=== PATIENT | female | born 1955 | race Two or more races ===

== ENCOUNTER 2020-09-24 05:05 | Inpatient (IN) | payer OTHER ==
[2020-09-24] VITALS (15 sets, daily range): BP systolic 118–148; BP diastolic 40–78
[~2020-09-24] VITALS: Ht 170.2 cm; Wt 72.6 kg
[~2020-09-24 05:05] MED LIST: RISPERDAL1 MG PO; WELLBUTRIN SR100 MG ORAL
[2020-09-24] MEDS ORDERED: Rocuronium Bromide 50mg/5ml Inj IV ONE (06:29)
[2020-09-24] MEDS ORDERED: Succinylcholine 20mg/ml 10ml vial ONE (06:29)
[2020-09-24] MEDS ORDERED: fentaNYL 100 mcg/2 mL IV ONE (06:30)
[2020-09-24] MEDS ORDERED: Midazolam 2mg/2ml Inj ONE (06:30)
[2020-09-24] MEDS ORDERED: Lidocaine 1% MPF 10mg/ml 5ml ONE (06:32)
[2020-09-24] MEDS ORDERED: Thrombin 5000 units TOPIC ONE (06:41)
[2020-09-24] MEDS ORDERED: Gelfoam Size TOPIC ONE (06:42)
[2020-09-24] MEDS ORDERED: Bacitracin 50000 Units Vial ONE (06:42)
[2020-09-24] MEDS ORDERED: Sterile Water Irrig 1000ml IRRIG ONE (07:00)
[2020-09-24] MEDS ORDERED: propofoL 1,000mg/100ml IV ONE (07:00)
[2020-09-24] MEDS ORDERED: LR 1000ml ONE (07:00)
[2020-09-24] MEDS ORDERED: ceFAZolin sod 2 GM in NS 55 ML IVPB ONE (07:00)
[2020-09-24] MEDS ORDERED: NS Irrig 1000ml ONE (07:00)
--- NOTE | 2020-09-24 07:25 | Pre-Procedure Note/Attestation ---
Pre-Procedure Note/Attestation Complete Prior to Procedure Planned Procedure: not applicable Procedure Narrative: Anterior cervical discectomy and fusion of Cervical 56 and 67 Indications for Procedure Pre-Operative Diagnosis: herniation of C56,67 Attestation I attest that I discussed the nature of the procedure; its benefits; risks and complications; and alternatives (and the risks and benefits of such alternatives), prior to the procedure, with the patient (or the patient's legal senior outside sales representative). I attest that, if there was a reasonable possibility of needing a blood transfusion, the patient (or the patient's legal senior outside sales representative) was given the [facility] standardized written summary, pursuant to the Dez Mickey Blood Safety Act ([place] Health and Safety Code # 1645, as amended). I attest that I re-evaluated the patient just prior to the surgery and that there has been no change in the patient's H&P, except as documented below: Roc Montez MD Sep 24, 2020 07:25
--- NOTE | 2020-09-24 07:27 | Brief Operative Note ---
Immediate Post Operative Note Operative Note Chief Complaint: neck pain and radicular pains Pre-op Diagnosis: herniation of C56,67 Procedure: Anterior cervical discectomy and fusion of Cervical 56 and 67 Post-op Diagnosis: same as pre-op Findings: consistent w/pre-op dx studies Surgeon: Melida Head Turbine Operator: Tim Anesthesiologist: WILFREDO Anesthesia: general Specimen: none Complications: none Condition: stable Fluids: IVF Estimated Blood Loss: minimal Drains: none Implant(s) used?: Yes - prodisc c sz 5, nuvasive interlock c sz 6 , screws 13x3 Roc Montez MD Sep 24, 2020 07:27
[2020-09-24] MEDS ORDERED: Morphine Sulfate 4mg/ml Inj (IV USE ONLY) IV PRN (07:30)
[2020-09-24] MEDS ORDERED: Metoclopramide 10mg/2ml Inj IVP PRN (07:30)
[2020-09-24] MEDS ORDERED: HYDROcodone/Acetamin 7.5/325 tab ORAL PRN ×2 (07:30)
[2020-09-24] MEDS ORDERED: HYDROcodone/Acetamin 5/325 tab ORAL PRN (07:30)
[2020-09-24] MEDS ORDERED: Naloxone 0.4mg/ml Inj IVP PRN (07:30)
[2020-09-24] MEDS ORDERED: Morphine Sulfate 2mg/ml Inj(IV/IM USE ONLY) IV PRN (07:30)
[2020-09-24] MEDS ORDERED: Milk of Magnesia 30ml Ud ORAL PRN (07:30)
[2020-09-24] MEDS ORDERED: HYDROmorphone 1mg/ml Carpuject IVP PRN (07:30)
[2020-09-24] MEDS ORDERED: Chloraseptic Spray 20mL Bottle ORAL PRN (07:30)
[2020-09-24] MEDS ORDERED: Sodium Chloride 10ml vial INJ ONE (07:56)
[2020-09-24] MEDS ORDERED: Morphine Sulfate 10mg/ml Inj ONE (07:56)
--- NOTE | 2020-09-24 07:57 | NUR ---
CASE MANAGEMENT:REVIEW 64 YR OLD MALE HERE FOR ELECTIVE SURGERY SI: NECK PAIN. RADICULOPATHY COVID NOT DETECTED 97.6/68 18 118/61 97% ON RA IS: TO SURGERY FOR: ANTERIOR CERVICAL DISCECTOMY AND FUSION C56 AND 67 IV ANCEF Q8HRS IV DECADRON Q6HRS IV ACETAMINOPHEN X1 IVF@100/HR : TO MED/SURG POST OP DCP: FROM HOME PLAN: PT EVAL AND TX
[2020-09-24] MEDS ORDERED: Acetaminophen (Non formulary) 100 ML IV ONE (08:00)
--- NOTE | 2020-09-24 08:13 | Anethesia Preoperative Eval ---
Anesthesia Pre-op PMH/ROS General Date of Evaluation: Sep 24, 2020 Time of Evaluation: 06:55 Anesthesiologist: Santiago ASA Score: ASA 2 Mallampati Score Class I : Soft palate, uvula, fauces, pillars visible Class II: Soft palate, uvula, fauces visible Class III: Soft palate, base of uvula visible Class IV: Only hard plate visible Mallampati Classification: Class II Surgeon: Melida Diagnosis: Cervical radiculopathy Surgical Procedure: ACDF Anesthesia History: none Social History: smoking - h/o Family History: no anesthesia problems Allergies: Coded Allergies: No Known Allergies (Unverified , 09/22/20) Medications: see eMAR Patient NPO?: Yes Past Medical History Cardiovascular: Denies: HTN, CAD, AL, valve dz, arrhythmia, other Pulmonary: Denies: asthma, COPD, JUAN, other Gastrointestinal/Genitourinary: Reports: GERD; Denies: CRI, ESRD, other Neurologic/Psychiatric: Reports: depression/anxiety, other - chronic pain; Denies: dementia, CVA, TIA Endocrine: Denies: DM, hypothyroidism, steroids, other HEENT: Denies: cataract (L), cataract (R), glaucoma, [place] (L), [place] (R), other Hematology/Immune: Denies: anemia, DVT, bleeding disorder, other Musculoskeletal/Integumentary: Reports: OA; Denies: RA, DJD, DDD, edema, other Other: other - overweight PMH Narrative: as above PSxH Narrative: KneeSx. Anesthesia Pre-op Phys. Exam Physician Exam Last Vital Signs Date Time Temp Pulse Resp B/P (MAP) Pulse Ox O2 Delivery O2 Flow Rate FiO2 09/24/20 06:08 Room Air 09/24/20 05:52 97.6 68 18 118/61 (80) 97 Constitutional: NAD Neurologic: CN 2-12 intact Cardiovascular: RRR, no M/R/G Respiratory: CTA Gastrointestinal: S/NT/ND Airway Exam Mallampati Score: Class II MO: limited Neck: stiff ROM: limited Teeth: missing Dentures: no upper, no lower Anesthesia Pre-op A/P Labs see chart Studies Pre-op Studies: EKG - NSR Risk Assessment & Plan Assessment: ASA 2 Plan: GA with ETT, neuromonitoring Status Change Before Surgery: No Pre-Antibiotics Drug: Ancef 1gr. Given Within 1 Hr of Incision: Yes Time Given: 07:40 Adrián Henderson MD Sep 24, 2020 08:13
[2020-09-24] MEDS ORDERED: DiphenhydrAMINE 50mg/ml Inj IVP PRN (08:15)
[2020-09-24] MEDS ORDERED: Ketorolac 30mg Inj IV PRN (08:15)
[2020-09-24] MEDS ORDERED: Midazolam 2mg/2ml Inj IVP PRN (08:15)
[2020-09-24] MEDS ORDERED: LR 1000ml 1,000 ML IVLG SCH (08:15)
[2020-09-24] MEDS ORDERED: Glycopyrrolate 0.2mg/ml 1ml Vial ONE (08:20)
[2020-09-24] MEDS ORDERED: Neostigmine 1mg/ml 10ml Inj ONE (08:20)
--- NOTE | 2020-09-24 09:22 | Immediate Post-Op Evaluation ---
Immediate Post-Op Evalulation Immediate Post-Op Evalulation Procedure: ACDF C5 toC7 Date of Evaluation: Sep 24, 2020 Time of Evaluation: 09:21 IV Fluids: 600 Blood Products: none Estimated Blood Loss: 100 Urinary Output: 300 Blood Pressure Systolic: 118 Blood Pressure Diastolic: 76 Pulse Rate: 72 Respiratory Rate: 20 O2 Sat by Pulse Oximetry: 99 Temperature (Fahrenheit): 97.6 Pain Score (1-10): 1 Nausea: No Vomiting: No Complications none Patient Status: reacts, patent, extubated, none Hydration Status: adequate Adrián Henderson MD Sep 24, 2020 09:22
[2020-09-24] MEDS: Hydromorphone 0.5mg/0.5ml inj IVP PRN ×2 (09:45→12:16)
--- NOTE | 2020-09-24 10:58 | Diagnostic Imaging Report ---
XRAY C Spine 2-3v CLINICAL HISTORY: Neck pain. COMPARISON: None FINDINGS: Fluoroscopy independent procedure performed for cervical fusion. 7.4 seconds of fluoroscopy time utilized by the ordering physician. Total cumulative dose is 0.36 mGy and 0.11901 Gy.cm2. Total of 3 spot images are obtained . IMPRESSION: FLUOROSCOPY GUIDED PROCEDURE.
--- NOTE | 2020-09-24 11:00 | NUR ---
NURSE NOTES: Shira RN brought patient by bed in stable condition. Alert and oriented x4. Complain of pain 6/10 surgical site. Will administer pain medication as ordered. IV dressing intact and dry. Belonging checked. Bed lowest position and side rails up. Call light within reach. Will continue to monitor.
[2020-09-24] MEDS: NS w/KCl 20mEq 1000ml 1,000 ML IV SCH ×2 (12:54→23:06)
[2020-09-24] MEDS: Morphine Sulfate 4mg/ml Inj (IV USE ONLY) IV PRN ×3 (13:04→21:32)
[2020-09-24] MEDS: ceFAZolin sod 1 GM in D5W 55 ML IV SCH ×2 (16:26→23:06)
[2020-09-24] MEDS: Docusate 100mg cap ORAL SCH (17:40)
--- NOTE | 2020-09-24 19:14 | NUR ---
NURSE HAND-OFF: Important Events on Shift: Surgery today Patient Status: Stable Diet: Post-op cervical diet Pending Orders: N/A Pending Results/Labs: N/A Pending MD notification:N/A Latest Vital Signs: Temperature 97.7 , Pulse 74 , B/P 128 /71 , Respiratory Rate 18 , O2 SAT 97 , Nasal Cannula, O2 Flow Rate 3 . Vital Sign Comment: Stable Latest Cardoza Fall Score: 35 Fall Risk: Medium Risk Safety Measures: Call light , Bed Alarm , Side Rails Side Rails x1, Bed position Low and Locked. Fall Precautions: Report given to Mindy MO. Patient in stable condition.
--- NOTE | 2020-09-24 19:21 | NUR ---
NURSE NOTES: Received patient in bed, post op, awake, alert, oriented x4, able to make her needs known, IV site is clean dry and intact, ambulates with assistance, call light is within reach, bed is lowered, locked, alarm is on, will continue to monitor for comfort and safety.
[2020-09-25] VITALS: BP 144/78
[2020-09-25] MEDS: Morphine Sulfate 4mg/ml Inj (IV USE ONLY) IV PRN ×2 (02:30→06:02)
[2020-09-25 04:00] VITALS: BP 144/76
[2020-09-25] MEDS: ceFAZolin sod 1 GM in D5W 55 ML IV SCH (06:30)
--- NOTE | 2020-09-25 07:15 | NUR ---
NURSE HAND-OFF: Important Events on Shift:awaiting to be discharged home Patient Status: full code Diet: cervical diet Pending Orders: Pending Results/Labs: Pending MD notification: Latest Vital Signs: Temperature 97.5 , Pulse 85 , B/P 144 /76 , Respiratory Rate 20 , O2 SAT 95 , Nasal Cannula, O2 Flow Rate 3 . Vital Sign Comment: Latest Cardoza Fall Score: 35 Fall Risk: Medium Risk Safety Measures: Call light Within Reach, Bed Alarm Zone 1, Side Rails Side Rails x1, Bed position Low and Locked. Fall Precautions: Report given to Becki MO
--- NOTE | 2020-09-25 07:18 | NUR ---
NURSE NOTES: Report received from Mindy MO, rounds made. Patient talkative. AOx4, calm. Respirations even/unlabored on RA. Anterior neck/surgical site pain /10, will medicate as ordered. Dermabond dressing CDI. Neuros intact, skin warm, moves all extremities, no NT, pulses palpable. IV infusing to LH, site asymptomatic, will heplock. Appetite good, on post cervical diet, encouraged PO fluid intake, verbalized understanding. Call light in reach, bed in lowest position, will continue to monitor.
[2020-09-25 08:00] VITALS: BP 127/69
[2020-09-25] MEDS: Docusate 100mg cap ORAL SCH (08:09)
--- NOTE | 2020-09-25 08:32 | NUR ---
NURSE NOTES: Spoke to Dr. Montez regarding plans for discharge today after PT eval, orders received for discharge. Contacted [facility] PT regarding PT eval and plans for discharge at 1000, will see patient at 0830 this AM. Patient updated, verbalized understanding.
--- NOTE | 2020-09-25 08:50 | NUR ---
PT EVALUATION NOTE Patient seen for initial evaluation. Patient instructed in log roll technique and cervical precautions. Patient independent with all functional mobility without assistive device including negotiating stairs. Skilled inpatient PT intervention not indicated, patient discharged from PT. Becki MO notified. Addendum: 09/25/20 at 1242 by CATHERINE KLEIN PT Amended: Links added.
[2020-09-25] MEDS: NS w/KCl 20mEq 1000ml 1,000 ML IV SCH (09:00)
--- NOTE | 2020-09-25 09:00 | NUR ---
NURSE NOTES: PT evaluation done, ambulated in halls with Aide PT, gait steady, moderate pace.
[2020-09-25] MEDS ORDERED: HYDROCODON-ACE1 EA13 ORAL (09:48)
[2020-09-25] MEDS ORDERED: CARISOPRODOL350 MG ORAL (09:49)
--- NOTE | 2020-09-25 10:08 | NUR ---
NURSE NOTES: Home medications reconciled with Dr. Montez, orders to continue upon discharge.
--- NOTE | 2020-09-25 10:32 | NUR ---
NURSE NOTES: Discharge instructions and prescription x1 reviewed with patient, verbalized understanding. LH saline lock discontinued, no active bleeding. ID bracelet removed. All belongings, discharge instructions, prescription given to patient. Ambulated down to lobby with Katy RIVERA , in stable condition. Discharged at 1032.
[2020-09-25] MEDS ORDERED: Tubing IV Secondary IV ONE (10:49)
[2020-09-25 12:10] VITALS: BP 118/76
--- NOTE | 2020-09-25 12:10 | 48 Hour Post Anesthesia Eval ---
Post Anesthesia Evaluation Procedure: ACDF C5 toC7 Date of Evaluation: Sep 25, 2020 Time of Evaluation: 10:20 Blood Pressure Systolic: 118 0: 76 Pulse Rate: 68 Respiratory Rate: 20 Temperature (Fahrenheit): 97.6 O2 Sat by Pulse Oximetry: 98 Airway: patent Nausea: No Vomiting: No Pain Intensity: 2 Hydration Status: adequate Cardiopulmonary Status: stable Mental Status/LOC: patient returned to baseline Follow-up Care/Observations: n/a Post-Anesthesia Complications: none Follow-up care needed: ready to discharge Adrián Henderson MD Sep 25, 2020 12:10
--- NOTE | 2020-09-27 21:29 | Operative Note - Dictated ---
DATE OF OPERATION: 09/24/2020 SURGEON: Roc Montez MD, Orthopaedic Spine Surgeon. SCRAP METAL BURNER: DELORIS Vargas PREOPERATIVE DIAGNOSES: 1. Intractable neck pain. 2. Radiculopathy. 3. Herniation, C5-C6, C6-C7. 4. Neural foraminal stenosis, C5-C6, C6-C7. 5. Stenosis. POSTOPERATIVE DIAGNOSES: 1. Intractable neck pain. 2. Radiculopathy. 3. Herniation, C5-C6, C6-C7. 4. Neural foraminal stenosis, C5-C6, C6-C7. 5. Stenosis. PROCEDURE PERFORMED: 1. Anterior cervical discectomy and fusion of C5-C6 using NuVasive Interlock C, size 6, a total of three screws of 13 mm, with the insertion of 1 mL of Osteocel allograft bone; anterior cervical discectomy and fusion of C6-C7 using NuVasive Interlock C, size 7, a total of three screws of 13 mm length, with the insertion of 1 mL of Osteocel allograft bone. 2. Use of intraoperative microscope. 3. Motor-evoked potential monitoring. 4. Somatosensory-evoked potential monitoring. 5. Supervision and interpretation of fluoroscopy. COMPLICATIONS: None. ANESTHESIA: General. ANESTHESIOLOGIST: Adrián Henderson MD ESTIMATED BLOOD LOSS: Less than 100 mL. INDICATIONS FOR SURGERY: This patient is a 64-year-old female who has a history of intractable neck pain, radiculopathy, herniation at C5-C6 and C6-C7, neural foraminal stenosis at C5-C6 and C6-C7, and stenosis. We tried a course of conservative management, but despite this course, there was still a significant component of persistent, recalcitrant neck pain and arm pain. The MRI demonstrated significant neural foraminal compromise secondary to disc herniations at C5-C6 and C6-C7. We had a long discussion with Jolene regarding the risks and benefits of surgery. Our discussion included but was not limited to nonoperative management, chiropractic management, another epidural steroid injection as well as definitive management in the form of surgery. We recommended an anterior cervical discectomy and fusion of C5-C6 and C6-C7 as final definitive management. We reviewed the risks and benefits of surgery with the patient. Our discussion included a comprehensive review of the clinical issues and the nature of the clinical decision. We reviewed the alternatives, including doing nothing. The patient elected to proceed accordingly with anterior cervical discectomy and fusion of C5-C6 and C6-C7. We had a long discussion regarding the risks, alternatives, and benefits of surgery. Our description of the risks included a discussion in person as well as a signed consent, which detailed all pertinent risks from the procedure itself. Briefly, our discussion included but was not limited to infection, bleeding, pseudarthrosis, spinal cord injury, neurovascular injury, dural tear, CSF leak, neuropathy, paralysis, permanent weakness/drop foot/drop arm, paresthesias, blindness, palsy, and weakness. The patient understood there may be a need for a revision surgery or additional procedures. Approach-related complications including dysphonia, dysphagia, blindness, permanent vocal cord and neural injury, hematoma, swallowing and breathing difficulty. Medical complications were reviewed including liver, kidney, shock, cardiopulmonary failure, anesthesia complications including , swelling, damage to the musculature, larynx/voice injury or loss, esophagus/throat, trachea, blood vessels and muscles/muscular sprain and lungs/pneumothorax during this surgical procedure; injury to deeper structures may be temporary or permanent. After this review of risks, the patient understood these and elected to proceed. A written and verbal consent was given. We discussed the pros and cons of all the alternatives. We discussed the uncertainties associated with the decision. Afterwards, I assessed the patient's understanding and explored their preferences. All questions were answered and no guarantees were given. Medical clearance was obtained prior to surgery. INTRAOPERATIVE FINDINGS: At C5-C6, there were no significant spurs noted along the anterior aspect of the C5 or C6 endplates intraoperatively. The disc itself was soft and spongy. There was appropriate disc height. The disc was not desiccated, crumbled, or collapsed. Upon removal of the disc, I noticed a tear in the posterior longitudinal ligament. This was approximately 10 degrees cephalad to caudad and was larger on the left side than on the right side. I noticed free fragments of nuclear tissue from the nucleus pulposus of the disc. This had herniated through the PLL and were causing significant pressure on the neural foramina and thecal sac posteriorly. These were resected with a combination of a Alvarado pituitary, Kerrison 1 and 2 rongeurs. At C6-C7, the disc itself was soft and spongy. There was no desiccation in the disc itself. There was an anterior spur noted along the inferior aspect of the C7 vertebral body. The disc at C6-C7 was resected and found to be soft and spongy. There was minimal desiccation to the disc itself and upon removal of the disc, I noticed a tear in the PLL. This tear was approximately 10 degrees cephalad to caudad and upon resection with a Microsect 1-B, I determined there was severe pressure on the neural foramina bilaterally. DESCRIPTION OF PROCEDURE: Under the benefit of general endotracheal anesthesia and with the assistance of the entire operative team, the patient was moved from the [facility] onto the operative table in the supine position. The head was secured and carefully positioned appropriately. Bilateral arms were secured with Gel Pads and foam and all bony prominences were padded. For the bilateral lower extremities, SCD and TIA hose were placed for DVT prophylaxis. A surgical timeout was called, which corroborated our planned procedure of anterior cervical discectomy and fusion of C5-C6 and C6-C7. Preoperative antibiotics were administered within 30 minutes of the incision for antibiotic prophylaxis. Using lateral fluoroscopic radiography, the operative levels were delineated. Next, the wound was prepped and draped with chlorhexidine and sterile drapes. An incision was based on lateral fluoroscopy and we centered our incision at the C5-C6 and C6-C7 interspace and next, using a standard Peck-Brown anterior-based approach, the incision was taken down through the skin and subcutaneous tissues until the vertebral bodies and their corresponding disc spaces were visualized. A needle was placed into the interspace to confirm placement of the operative interspace and we performed the remainder of procedure under microscopic visualization. Next, using a bipolar and Bovie cautery to ensure meticulous hemostasis, the longus colli was mobilized bilaterally and retractors were placed deep to the longus colli bilaterally to address retraction. Next, we turned our attention to the radical anterior discectomy. This was initially performed at C5-C6 first by using a 15 blade scalpel followed by narrow pituitaries and a Microsect 5-B curette was used to denude the endplate of all cartilaginous tissue. Next, using a [employer] Sathya AM8 drill bit, the partial vertebrectomy was performed in a uupb-iw-hels and ikpcw-qy-xihoq fashion, and ultimately the posterior uncinate joints bilaterally and posterior osteophytic lips and margins causing central and lateral impingement were carefully denuded until visualization of the posterior longitudinal ligament was possible. An endplate preparation was performed in the exact same fashion using an intervertebral director of audiology, sequential distraction was obtained throughout the disc space. We saw a tear/rent in the PLL and this was carefully mobilized and dissected using a Microsect 1-B curette until we visualized a broad-based disc herniation with compression of the spinal cord as well as neural foramina. This neural foraminal compression was carefully resected using a Kerrison-1 and Kerrison-2 rongeurs until complete decompression of the spinal cord was visualized and complete decompression of the neural foramina and nerve root therein as well as the axilla and lateral margin of the nerve root was visualized and subsequently completely decompressed. The family was notified at one-hour intervals throughout the procedure to provide for consistent updates. Next, we turned our attention to the radical anterior discectomy at the C6-C7 first by using a 15 blade scalpel followed by narrow pituitaries and a Microsect 5-B curette was used to denude the endplate of all cartilaginous tissue. Next, using a [employer] Sathya AM8 drill bit, the partial vertebrectomy was performed in a mjkn-jr-ovkb and bdxni-xq-qiboz fashion, and ultimately the posterior uncinate joints bilaterally and posterior osteophytic lips and margins causing central and lateral impingement were carefully denuded until visualization of the posterior longitudinal ligament was possible. An endplate preparation was performed in the exact same fashion using an intervertebral director of audiology, sequential distraction was obtained throughout the disc space. We saw a tear/rent in the PLL and this was carefully mobilized and dissected using a Microsect 1-B curette until we visualized a broad-based disc herniation with compression of the spinal cord as well neural foramina. This neural foraminal compression was carefully resected using a Kerrison-1 and Kerrison-2 rongeurs until complete decompression of the spinal cord was visualized and complete decompression of the neural foramina and nerve root therein as well as the axilla and lateral margin of the nerve root was visualized and subsequently completely decompressed. We next turned our attention towards trialing our implant within the disc space. We initially tried size 5 and afterwards size 6 trial from the NuVasive system at C5-C6 level and size 7 at C6-C7 level, which appeared to be appropriate under AP and lateral fluoroscopy as well as in terms of its height, depth, width, and lack of toggle. The PEEK (polyetheretherketone) interbody cages were then both packed with 1 mL of allograft bone from Osteocel and local autograft bone matrix. Next, these were then carefully advanced and secured into their intervertebral spaces under direct visualization and with supervision of AP and lateral fluoroscopic views. We next turned our attention towards plating at C5-C6. Plating was performed with the NuVasive Interlock-C plating system. A total of three screws of size 13 mm in length were inserted and confirmed under AP and lateral fluoroscopy and confirmed to be in excellent position. This was then performed at the next level, C6-C7. Plating was performed with the NuVasive Interlock-C plating system. A total of three screws of size 13 mm in length were inserted and confirmed under AP and lateral fluoroscopy and confirmed to be in excellent position. After a finger sweep, we confirmed removal of all sponges. The retractor was removed and we next turned our attention to meticulous hemostasis with FloSeal and bipolar cautery. After the sponge and needle count was again found to be correct with our second count, we next turned our attention to closure. The wound was again copiously irrigated with antibiotic-impregnated saline. Closure consisted of 4-0 clear nylon for the platysma, and 6-0 clear nylon for the superficial skin. Final skin closure and dressings consisted of Dermabond. Prior to final closure, a final radiograph was obtained, which demonstrated the hardware was intact with excellent position throughout. The patient tolerated the procedure well. The patient was carefully extubated after the conclusion of surgery. We discussed the findings of the surgery with the family upon completion of the case. At this point, the patient was transferred to the spine floor for further observation. Ellyn Jacobson JOB#: [id number] CC:
--- NOTE | 2020-09-29 16:44 | Discharge Summary ---
Discharge Summary Discharge Summary _ Date of admission: 09/24/2020 Date of discharge: 09/25/[address] Montez History of Present Illness and Brief Hospital Course Ms. Lebron is a 64-year-old female with past medical history of intractable neck pain and radiculopathy who presented to the hospital for a scheduled procedure. Patient had a history of intractable neck pain, radiculopathy, herniation at C5-C6 and C6-C7, neural foraminal stenosis at C5-C6 and C6-C7, and stenosis. Patient underwent a course of conservative management, but despite the course, there was still a significant component of persistent, recalcitrant neck pain and arm pain. The previous MRI demonstrated significant neuroforami nal compromise secondary to disc herniations at C5-C6 and C6-C7. After thorough discussion regarding the risks and benefits of the surgery, patient decided to have anterior cervical discectomy and fusion of C5-C6 and C6-C7 as final definitive management. Patient was taken to the OR and underwent anterior cervical discectomy and fusion of C5-C6 using NuVasive interlocks E, size 6, and a total of 3 screws of 13 mm, with insertion of 1 mL of osteocell allograft bone; anterior cervical discectomy and fusion of C6-C7 using NuVasive interlocks E, size 7, a total of 3 screws of 13 mm in length, with the insertion of 1 mL of osteocell allograft bone. The details of the procedure is described in operative notes. Patient tolerated the procedure well and the patient was carefully extubated after the surgery. Patient was monitored closely after the operation. Patient began verbalizing her needs and was alert and oriented x4. Respirations were even and unlabored on room air. Patient was evaluated by a physical therapist who found her to be independent with all functional mobility without assistive device. Patient was medically stable for discharge and discharged home on 09/25/2020. Consultants: None Discharge Condition Improved and stable Discharge Activity Advance as tolerated Final diagnoses Intractable neck pain Radiculopathy History of herniation, C5-C6 and C6-C7 History of neural foraminal stenosis, C5-C6, C6-C7 Status post anterior cervical discectomy and fusion of C5-C6 and C6-C7 (09/24/20) I have been assigned to dictate discharge summary for this account. I was not involved in the patient's management Jarrod Barton Sep 29, 2020 16:44
== END 2020-09-25 10:50 | disposition home or self-care (01) | DRG 473 ==
LOC: SDSOVERFLO 05:05 → 4E 11:15
PROC: 0RG20A0 Fusion of 2 or more Cervical Vertebral Joints with Interbody Fusion Device, Anterior Approach, Anterior Column, Open Approach (ICD-10-PCS; principal; 2020-09-24 07:00)
PROC: 0RB30ZZ Excision of Cervical Vertebral Disc, Open Approach (ICD-10-PCS; principal; 2020-09-24 07:00)
DX: M50.122 Cervical disc disorder at C5-C6 level with radiculopathy (principal); Z87.891 Personal history of nicotine dependence; M48.02 Spinal stenosis, cervical region
CPT/HCPCS: 36415; 72040; 76000; 86850; 86900; 86901; 87081; 94003; 94150; J2250; J2710